=== PATIENT | male | born 1955 | race Caucasian/White ===

== ENCOUNTER 2024-07-19 06:14 | Day surgery (SDC) | payer MEDICARE, OTHER, SELFPAY ==
[2024-07-19 11:49] VITALS: BMI 36.3
[2024-07-19 11:51] VITALS: BP 174/89; BMI 36.3
[2024-07-19 11:59] LABS: Glucose - Point of Care 106 mg/dl (70-99)
[2024-07-19 14:40] VITALS: BP 130/59
[2024-07-19 14:45] VITALS: BP 145/86
== END 2024-07-19 15:30 | disposition home or self-care (01) ==
LOC: SDS 06:14
PROVIDERS: ATTENDING PHYSICIAN Internal Medicine Gastroenterology
DX: C77.2 Secondary and unspecified malignant neoplasm of intra-abdominal lymph nodes (principal); I86.4 Gastric varices; K31.89 Other diseases of stomach and duodenum; K86.9 Disease of pancreas, unspecified; K83.8 Other specified diseases of biliary tract; I89.9 Noninfective disorder of lymphatic vessels and lymph nodes, unspecified; I82.890 Acute embolism and thrombosis of other specified veins; R93.5 Abnormal findings on diagnostic imaging of other abdominal regions, including retroperitoneum
CPT/HCPCS: 43238; 88172; 88173; 88305; 82962; 88341; 88342